=== PATIENT | male | born 1995 | race Caucasian/White ===

== ENCOUNTER 2018-09-24 13:21 | Emergency (ER) | payer OTHER, SELFPAY ==
[~2018-09-24 13:21] MED LIST: /ACETCOD3T OR; /AUGM875TA OR; ACET500C OR; ACET65TA OR; BACT400T OR; BACT800T OR; FLAG500T OR; No Historical Meds
[2018-09-24] MEDS ORDERED: ONDANSETRON 4MG/2ML VIAL (J2405) As Ordered ONE (13:43)
[2018-09-24] MEDS ORDERED: HALOPERIDOL 5 MG/ML VIAL (J1630) IV ONE (13:45)
[2018-09-24] MEDS ORDERED: NS 1,000 ML IV ONE (13:45)
[2018-09-24 13:58] LABS: BASO % 0.2 % (0.0-1.0); EOS % 0.1 % (0.0-3.0); HEMATOCRIT 46.1 % (42.0-52.0); HEMOGLOBIN 16.2 g/dl (13.5-17.5); LYMPH # 0.7 10^3/uL (1.5-6.5); MEAN CORPUSCULAR HEMOGLOBIN 30.1 pg (27.0-33.0); MEAN CORPUSCULAR HGB CONC 35.1 g/dl (32.0-36.5); MEAN CORPUSCULAR VOLUME 85.7 fl (80.0-96.0); MONO % 9.2 % (0.0-5.0); NEUTROPHILS # 9.5 10^3/uL (1.8-7.7); NEUTROPHILS % 84.1 % (36.0-66.0); PLATELET COUNT, AUTOMATED 262 10^3/uL (150-450); RED BLOOD COUNT 5.38 10^6/uL (4.30-6.10); WHITE BLOOD COUNT 11.3 10^3/uL (4.0-10.0)
[2018-09-24 14:36] LABS: ALBUMIN 4.3 GM/DL (3.2-5.2); ALT/SGPT 21 U/L (12-78); AMYLASE 31 U/L (25-115); BILIRUBIN,DIRECT 0.2 MG/DL (0.0-0.2); BILIRUBIN,TOTAL 0.9 MG/DL (0.2-1.0); BLOOD UREA NITROGEN 14 MG/DL (7-18); CARBON DIOXIDE LEVEL 24 MEQ/L (21-32); CHLORIDE LEVEL 106 MEQ/L (98-107); GLOMERULAR FILTRATION RATE > 60.0 (>60); GLUCOSE, FASTING 104 MG/DL (70-100); LIPASE 57 U/L (73-393); POTASSIUM SERUM 3.8 MEQ/L (3.5-5.1); SODIUM LEVEL 140 MEQ/L (136-145); TOTAL PROTEIN 7.4 GM/DL (6.4-8.2)
[2018-09-24] MEDS ORDERED: GI COCKTAIL 50ML BTL(HYOSCYAMINE/MAALOX/LIDOCAINE VISCOUS)(1:3:1) PO ONE (15:00)
[2018-09-24] MEDS ORDERED: PEPC1TAB5 PO (15:20)
[2018-09-24] MEDS ORDERED: ONDA8TAB8 PO (15:20)
[2018-09-24 15:33] VITALS: BP 133/74
== END 2018-09-24 15:34 | disposition home or self-care (01) ==
LOC: EDBD 13:21 → M ED 13:21
DX: K29.70 Gastritis, unspecified, without bleeding (principal); F12.10 Cannabis abuse, uncomplicated; F17.210 Nicotine dependence, cigarettes, uncomplicated
CPT/HCPCS: 80048; 80076; 82150; 83690; 85025; 96374; 99284; J1630